=== PATIENT | male | born 1945 | race Caucasian/White ===

== ENCOUNTER 2022-12-22 08:17 | Inpatient (IN) | payer MEDICARE, BC ==
[2022-12-19 11:51] LABS: Basophils # (auto) 0.1 10 ^3/uL (0-0.2); Basophils % (auto) 1.2 % (0.0-2.0); Eosinophils # (auto) 0 10 ^3/uL (0-0.8); Eosinophils % (auto) 0.6 % (0.0-7.0); Hematocrit 47.7 % (41.0-53.0); Hemoglobin 15.9 g/dL (13.5-17.5); Lymphocytes % (auto) 19.2 % (10.0-50.0); Mean Corpuscular Hemoglobin 32.4 pg (28.0-32.0); Mean Corpuscular Hgb Conc. 33.3 g/dL (32.0-36.0); Mean Corpuscular Volume 97.2 fL (80.0-100.0); Monocytes # (auto) 0.5 10 ^3/uL (0-1.3); Monocytes % (auto) 10.3 % (0.0-12.0); Neutrophils # (auto) 3.6 10 ^3/uL (1.6-8.6); Neutrophils % (auto) 68.7 % (37.0-80.0); Nucleated Red Blood Cells % 0.1 %; Red Blood Cells 4.91 10^6/uL (4.5-5.90); Red Cell Distribution Width 13.3 % (11.8-14.3); White Blood Cell 5.2 10^3/uL (4.4-10.8)
[2022-12-19 12:00] LABS: INR 0.94 (0.9-1.15)
[2022-12-19 12:36] LABS: Potassium 4.5 mmol/L (3.5-5.1)
[2022-12-19 12:46] LABS: Albumin 3.7 g/dL (3.4-5.0); BUN/Creatinine Ratio 20.8; Bilirubin, Total 0.6 mg/dL (0.2-1.0); Calcium 9.7 mg/dL (8.5-10.1); Total Protein 7.4 g/dL (6.4-8.2)
[2022-12-19 17:09] LABS: Urine Bacteria NONE SEEN /hpf (None Seen); Urine Blood Negative /uL (Negative); Urine Specific Gravity 1.018 (1.001-1.035); Urine WBC 1 /hpf (0 - 3)
[~2022-12-22] VITALS: Ht 190.5 cm; Wt 96.1 kg
[~2022-12-22 08:17] MED LIST: AML5T PO; BIMA0.01 OP; TIMO0.5S66 OP
[2022-12-22] MEDS ORDERED: MIDAZOLAM HCL 2MG/2ML 2ml VIAL (1mg/ml) ONE (11:11)
[2022-12-22] MEDS ORDERED: ROCURONIUM 10MG/ML 10ML VIAL IV ONE (11:11)
[2022-12-22] MEDS ORDERED: HYDROmorphone HCL 2 MG/ML VL/or syr ONE (11:11)
[2022-12-22] MEDS ORDERED: fentaNYL CITRATE 100 MCG/2 ML VL ONE ×3 (11:11→13:46)
[2022-12-22] MEDS ORDERED: PROPOFOL 10 MG/ML 20 ML IV ONE ×4 (11:11→14:10)
[2022-12-22] MEDS ORDERED: ONDANSETRON HCL 4 MG/2 ML VIAL ONE (11:11)
[2022-12-22] MEDS ORDERED: DexAMETHasone SOD PHOS 10MG/1ML VIAL INJ ONE (11:11)
[2022-12-22] MEDS ORDERED: SODIUM CHLORIDE LOCK 50 ML ONE (11:25)
[2022-12-22] MEDS ORDERED: ceFAZolin 1GM/50ML 100 ML IV ONE (11:44)
[2022-12-22] MEDS ORDERED: HYDROmorphone HCL 2 MG/ML VL/or syr IV PRN ×3 (11:45→15:45)
[2022-12-22] MEDS ORDERED: MORPHINE SULFATE INJ 2 MG/ml SYRG IV PRN ×2 (11:45→15:45)
[2022-12-22] MEDS ORDERED: METOCLOPRAMIDE HCL 5MG/ml INJ 2ml VIAL IV PRN (11:45)
[2022-12-22] MEDS: ceFAZolin 1GM/50ML 50 ML IV SCH ×2 (15:45→23:56)
[2022-12-22] MEDS ORDERED: NITROGLYCERIN 0.4 MG SL TAB SL PRN (15:45)
[2022-12-22] MEDS ORDERED: ACETAMINOPHEN 325 MG TAB PO PRN (15:45)
[2022-12-22] MEDS ORDERED: MILK OF MAGNESIA 30ML SUSP PO PRN (15:45)
[2022-12-22] MEDS ORDERED: D5W/SOD CHL 0.45% 1,000 ML IV SCH (15:45)
[2022-12-22] MEDS ORDERED: HYDROmorphone HCL 2 MG/ML VL/or syr IV ONE (16:37)
[2022-12-22] MEDS ORDERED: CYCLOBENZAPRINE HCL 10 MG TAB PO ONE (17:20)
[2022-12-22] MEDS ORDERED: HYDROcodone-ACET 10/325MG TAB PO ONE (17:20)
[2022-12-22 17:30] VITALS: BP 155/84
[2022-12-22 20:00] VITALS: BP 149/85
[2022-12-22 22:00] VITALS: BP 149/85
[2022-12-22] MEDS: MECLIZINE HCL 25 MG TAB PO SCH (22:04)
[2022-12-22] MEDS: HYDROcodone-ACET 10/325MG TAB PO PRN (22:05)
[2022-12-22] MEDS: CYCLOBENZAPRINE HCL 10 MG TAB PO SCH (22:05)
[2022-12-23 05:00] VITALS: BP 120/66
[2022-12-23] MEDS: MECLIZINE HCL 25 MG TAB PO SCH ×3 (05:56→22:36)
[2022-12-23] MEDS: CYCLOBENZAPRINE HCL 10 MG TAB PO SCH ×3 (05:57→22:37)
[2022-12-23 08:00] VITALS: BP_SYST 132; BP_SYST 149; BP_DIAS 65; BP_DIAS 85
[2022-12-23] MEDS: HYDROcodone-ACET 10/325MG TAB PO PRN ×2 (10:20→18:42)
[2022-12-23] MEDS: amLODIPine BESYLATE 5 MG TAB PO SCH (10:20)
[2022-12-23 12:34] VITALS: BP 133/66
[2022-12-23 17:00] VITALS: BP 131/81
[2022-12-23 20:00] VITALS: BP 149/85
[2022-12-23] MEDS ORDERED: DexAMETHasone SOD PHOS 10MG/1ML VIAL INJ IM ONE (21:15)
[2022-12-23 22:00] VITALS: BP 137/77
[2022-12-23] MEDS ORDERED: DexAMETHasone SOD PHOS 10MG/1ML VIAL INJ IV ONE (22:00)
[2022-12-24] MEDS: CYCLOBENZAPRINE HCL 10 MG TAB PO SCH ×2 (06:15→15:25)
[2022-12-24] MEDS: MECLIZINE HCL 25 MG TAB PO SCH ×2 (06:15→15:25)
[2022-12-24 08:00] VITALS: BP 127/67
[2022-12-24 09:00] VITALS: BP 127/67
[2022-12-24] MEDS: amLODIPine BESYLATE 5 MG TAB PO SCH (09:58)
[2022-12-24] MEDS ORDERED: DexAMETHasone SOD PHOS 10MG/1ML VIAL INJ IM ONE (10:00)
[2022-12-24] MEDS ORDERED: DexAMETHasone SOD PHOS 10MG/1ML VIAL INJ IV ONE (10:00)
[2022-12-24 13:00] VITALS: BP 129/72
[2022-12-24 14:23] VITALS: BP 127/67
== END 2022-12-24 16:00 | disposition home health service (06) | DRG 473 ==
LOC: SUR 08:17 → TELE 15:43 → TELE-WESTW 18:40
PROVIDERS: ADMIT Orthopaedic Surgery; ATTEND Orthopaedic Surgery
PROC: 0RB30ZZ Excision of Cervical Vertebral Disc, Open Approach (ICD-10-PCS; 2022-12-22)
PROC: 01N10ZZ Release Cervical Nerve, Open Approach (ICD-10-PCS; 2022-12-22)
PROC: 0RG20A0 Fusion of 2 or more Cervical Vertebral Joints with Interbody Fusion Device, Anterior Approach, Anterior Column, Open Approach (ICD-10-PCS; principal; 2022-12-22 11:56)
DX: M48.02 Spinal stenosis, cervical region (principal); M54.12 Radiculopathy, cervical region; I10 Essential (primary) hypertension
CPT/HCPCS: 36415; 72040; 76000; 80053; 81001; 85025; 85610; 85730; 86850; 86900; 86901; 97110; 97116; 97163; 97530; G0378; J0690; J1100; J2250; J2405; J2704